=== PATIENT | male | born 1970 | race Caucasian/White ===

== ENCOUNTER 2022-04-10 16:17 | Emergency (ER) | payer OTHER ==
[~2022-04-10 16:17] MED LIST: IBUPROFEN800 MG PO; VITAMIN D350 MC4 PO
[2022-04-10] MEDS ORDERED: OMEPRAZOLE 20MG20 MG PO (17:28)
[2022-04-10 18:25] LABS: BASOPHIL 0.7 % (0-2); EOSINOPHIL 1.5 % (0-5); HCT 44.8 % (42.0-52.0); HGB 15.9 g/dl (13.2-18.0); LYMPHOCYTE 29.6 % (15-48); MCH 32.9 pg (25.0-31.0); MCHC 35.5 g/dL (32.0-36.0); MCV 92.6 fL (78.0-100.0); MONOCYTE 6.3 % (0-12); MPV 8.7 fL (6.0-9.5); NEUTROPHIL 61.5 % (41-80); NRBC 0; PLT 249 K/uL (150-400); RBC 4.84 M/uL (4.70-6.00); WBC 8.1 K/uL (4.0-10.5)
[2022-04-10 18:42] LABS: ALBUMIN 3.9 g/dL (3.4-5.0); BILIRUBIN - TOTAL 0.6 mg/dL (0.2-1.0); BUN/CREAT RATIO (CALC) 13.3 RATIO; CREATININE 0.9 mg/dL (0.67-1.17); GLOBULIN (CALCULATION) 3.4 g/dL; POTASSIUM 3.7 mmol/L (3.5-5.1); TOTAL PROTEIN 7.3 g/dL (6.4-8.2)
[2022-04-10 19:06] LABS: CORONAVIRUS 2019 SARS-COV-2 NEGATIVE (NEGATIVE); INFLUENZA A NAA NEGATIVE (NEGATIVE)
[2022-04-10 19:50] LABS: BILIRUBIN NEGATIVE (NEGATIVE); BLOOD NEGATIVE Ery/uL (NEGATIVE); CLARITY CLEAR (CLEAR); COLOR YELLOW (YELLOW); GLUCOSE (U) NORMAL (NORMAL); LEUKOCYTES NEGATIVE Leu/uL (NEGATIVE); NITRITE NEGATIVE (NEGATIVE); PROTEIN NEGATIVE (NEGATIVE); SPECIFIC GRAVITY 1.025 (1.001-1.030); UROBILINOGEN 0.2 mg/dL (0.2-1.0)
[2022-04-10] MEDS ORDERED: BENTYL10 MG PO (22:20)
[2022-04-10] MEDS ORDERED: ONDANSETRON HCL4 MG PO (22:20)
== END 2022-04-10 22:53 | disposition home or self-care (01) ==
LOC: FER 16:17
PROVIDERS: Nurse Practitioner Family
DX: R10.11 Right upper quadrant pain (principal); R11.2 Nausea with vomiting, unspecified; F17.210 Nicotine dependence, cigarettes, uncomplicated; K21.9 Gastro-esophageal reflux disease without esophagitis; Z88.1 Allergy status to other antibiotic agents; Z20.822 Contact with and (suspected) exposure to COVID-19; Z79.899 Other long term (current) drug therapy
CPT/HCPCS: 36415; 80053; 81003; 82150; 83690; 85025; J2270; J2405; J7030; Q9967; U0002